=== PATIENT | female | born 1990 | race African-American/Black ===

== ENCOUNTER 2016-07-09 15:25 | Emergency (ER) | payer SELFPAY ==
[2016-07-09 15:33] VITALS: BP 114/75; BMI 35.6
[2016-07-09] MEDS ORDERED: XYLOCAINE 1 % (PLAIN) ONE (15:58)
--- NOTE | 2016-07-09 16:37 | DR.GENAD ---
HPI - PCP Primary Care Physician: QAMAR - HPI Comment HPI Comment: PAIN WORSE TODAY. NO FEVER. AREA OF ABSCESS WARM. - Complaint/Symptoms Chief Complaint Doctors Comments: ABSCESS BUTTOCKS TIMES ONE WEEK. Chief Complaint:: pt is c/o pain to lower back. small abcess is noted. - Nurses notes reviewed Nurses Notes Review: Yes - Source History Provided: Patient - Mode of Arrival Mode of Arrival: Ambulatory - Timing Onset of Chief Complaint: 07/02/16 Came on: Suddenly - Duration Duration: Constant Duration: Days - Severity Severity: Moderate PMH - PMH Past Medical History: No Past Surgical History: Yes Surgical History: - Family History History of Family Medical Conditions: Yes Family Medical History: Diabetes Mellitus, Hypertension - Social History Does patient currently use any type of tobacco product: Yes Have you used tobacco products in the last 12 months: Yes Type of Tobacco Use: Cigarettes Does any household member use tobacco: Yes Alcohol Use: None Do you use any recreational Drugs:: No Lives With: Spouse Lives Where: Home - infectious screening In the last 2 months have you had wt loss of >10#?: NO Have you had fever, night sweats or hemotysis?: No Have you traveled outside the country in the last 6 months?: No Isolation: Standard ROS - Review of Systems Constitutional: No Symptoms Reported Eyes: No Symptoms Reported ENTM: No Symptoms Reported Respiratoy: No Symptoms Reported Cardiovascular: No Symptoms Reported Gastrointestinal/Abdominal: No Symptoms Reported Genitourinary: No Symptoms Reported Neurological: No Symptoms Reported Musculoskeletal: Other (BUTTOCKS) Integumentary: Other (ABSCESS BUTTOCKS AT LOWER SACRUM.) Hematologic/Lymphatic: No Symptoms Reported. negative: Lymphadenopathy Endocrine: No Symptoms Reported All Other Systems: Reviewed and Negative PE - Vital Signs Vitals: Temperature 99.1 F Pulse Rate 130 Respiratory Rate 20 Blood Pressure 114/75 O2 Sat by Pulse Oximetry 98 - General Limitations: No Limitations General Appearance: Alert - Head Head Exam: Normal Inspection - Eyes Eye exam: Normal Appearance - ENT ENT Exam: Normal External Ear Exam External Ear Exam: Normal External Inspection Nose Exam: Normal Nose Exam Mouth Exam: Normal Inspection Throat Exam: Normal Inspection - Neck Neck Exam: Trachea Midline - Chest Chest Inspection: Symmetric Chest Wall Rise - Respiratory Respiratory Exam: Normal Lung Sounds Bilat Respiratory Exam: Bilateral Clear to Auscultation - Cardiovascular Cardiovascular Exam: Regular Rate, Normal Rhythm, Normal Heart Sounds - Abdominal Exam Abdominal Exam: Normal Bowel Sounds, Soft. negative: Tenderness - Extremities Extremities Exam: Normal Inspection - Back Back Exam: Other (ABSCESS LOWER SACRUM.) - Neurologic Neurological Exam: Alert, Oriented X3 - Psychiatric Psychiatric Exam: Anxious - Skin Skin Exam: Normal Color MDM - Additional Information Additional Information Obtained From: Family - Differential Diagnosis Differential Diagnosis: ABSCESS, CELLULITIS Course - Treatment Treatment: SEE ORDERS. ABSCESS VIKA. - Education/Counseling Education/Counseling: Patient, Family, Education Educated On: Diagnosis, Needs for Follow Up ROR - Labs Reviewed Laboratory: 07/09/16 16:32 Sacral Gram Stain - Final 07/09/16 16:32 Sacral Wound Culture - Final Staph Auricularis Procedures - Incision and Drainage Blade Size: 11 I & D Procedure: betadine prep, sterile dressing applied, gauze wick placed Progress: ABSCESS DRAINED 15CC FOUL SMELLING PUS. - Diagnosis Discharge Problem: Abscess, Cellulitis and abscess of buttock - Discharge Plan Disposition: HOME, SELF-CARE Condition: Stable Prescriptions: Acetaminophen W/ Codeine [Tylenol/Codeine #3 300-30 mg] 1 tab PO Q4-6H PRN #15 tab PRN Reason: Pain Ibuprofen [MOTRIN TAB 600 MG *] 600 mg PO TID PRN #60 tab PRN Reason: Pain/Inflammation Sulfamethoxazole-Trimethoprim [BACTRIM DS TAB 800/160 MG *] 1 tab PO BID #20 tab - Follow ups/Referrals Follow ups/Referrals: [facility],None [Primary Care Provider] - 3 days - Instructions Instructions: Abscess, Cellulitis Additional Instructions: RETURN TO ED IF WORSE.
== END 2016-07-09 16:40 | disposition home or self-care (01) ==
LOC: ER 15:37
PROC: 0HB8XZZ Excision of Buttock Skin, External Approach (ICD-10-PCS; principal; 2016-07-09)
DX: L02.31 Cutaneous abscess of buttock (principal); L03.317 Cellulitis of buttock; A49.01 Methicillin susceptible Staphylococcus aureus infection, unspecified site
CPT/HCPCS: 10060; 87070; 87075; 87076; 87077; 87186; 87205; 99282; 99283; J2001